=== PATIENT | female | born 1970 ===

== ENCOUNTER 2020-09-24 10:35 | Day surgery (SDC) | payer OTHER ==
[~2020-09-24 10:35] MED LIST: CRESTOR10 MG PO
[2020-09-24] MEDS ORDERED: MORGIDOX100 MG PO (16:12)
[2020-09-24] MEDS ORDERED: Tylenol #3 PO (16:12)
== END 2020-09-24 22:08 | disposition home or self-care (01) ==
LOC: CIR.AMB 10:35
PROVIDERS: ATTEND Obstetrics & Gynecology
DX: N84.0 Polyp of corpus uteri (principal); D25.0 Submucous leiomyoma of uterus; Z20.828 Contact with and (suspected) exposure to other viral communicable diseases